=== PATIENT | female | born 1980 | race Caucasian/White ===

== ENCOUNTER → 2017-04-22 | Outpatient (CLI) | payer OTHER ==
--- NOTE | 2017-04-22 11:31 | RADIOLOGY REPORT (SQ) ---
EXAM DESCRIPTION: CERV SP 3 VIEW OR LESS COMPLETED DATE/TIME: 04/22/2017 11:19 am REASON FOR STUDY: PINCHED NERVE ON NECK COMPARISON: 09/24/2014. NUMBER OF VIEWS: Two views. TECHNIQUE: AP and lateral radiographic images acquired of the cervical spine. LIMITATIONS: None. FINDINGS: MINERALIZATION: Normal. ALIGNMENT: Anatomic. VERTEBRAE: Vertebral bodies of normal height. DISCS: No significant disc space narrowing. No large osteophytes. HARDWARE: None in the spine. SOFT TISSUES: No masses or calcifications. Lung apices clear. OTHER: No other significant finding. IMPRESSION: NO SIGNIFICANT FINDING. TECHNICAL DOCUMENTATION: JOB ID: [id number] [employer]- All Rights Reserved
--- NOTE | 2017-04-22 11:31 | RADIOLOGY REPORT (SQ) ---
EXAM DESCRIPTION: L SPINE 2 VIEWS COMPLETED DATE/TIME: 04/22/2017 11:19 am REASON FOR STUDY: SPINAL STENOSIS, DEGENERATIVE DISC CONDITION COMPARISON: 09/24/2014. NUMBER OF VIEWS: Two views. TECHNIQUE: AP and lateral radiographic images acquired of the lumbar spine. LIMITATIONS: None. FINDINGS: MINERALIZATION: Normal. SEGMENTATION: Normal. No transitional anatomy. ALIGNMENT: Normal. VERTEBRAE: Maintained height. No fracture or worrisome bone lesion. DISCS: Preserved height. No significant osteophytes or end plate irregularity. POSTERIOR ELEMENTS: Pedicles and facets are intact. No pars defect or posterior arch defects. HARDWARE: None in the spine. PARASPINAL SOFT TISSUES: Normal. PELVIS: Intact as visualized. No fractures or worrisome bone lesions. SI joints intact. OTHER: No other significant finding. IMPRESSION: NORMAL 2 VIEW LUMBAR SPINE. TECHNICAL DOCUMENTATION: JOB ID: [id number] [employer]- All Rights Reserved
--- NOTE | 2017-04-22 11:32 | RADIOLOGY REPORT (SQ) ---
EXAM DESCRIPTION: SHOULDER RIGHT 2 OR MORE VIEWS COMPLETED DATE/TIME: 04/22/2017 11:19 am REASON FOR STUDY: INFLAMMATION OF TENDONS ON RIGHT SHOULDER, BURSITIS OF RIGHT SHOULDER COMPARISON: None. NUMBER OF VIEWS: Three views. TECHNIQUE: Internal rotation, external rotation, and Y view images acquired of the right shoulder. LIMITATIONS: None. FINDINGS: MINERALIZATION: Normal. BONES: No acute fracture or dislocation. No worrisome bone lesions. No significant osteophytes. GLENOHUMERAL JOINT: No significant findings. ACROMIOCLAVICULAR JOINT: No large osteophytes. SOFT TISSUES: No calcifications. VISUALIZED RIBS, SPINE, AND LUNG: No other significant finding. OTHER: No other significant finding. IMPRESSION: NEGATIVE STUDY OF THE RIGHT SHOULDER. NO EXPLANATION FOR PAIN. TECHNICAL DOCUMENTATION: JOB ID: [id number] [employer]- All Rights Reserved
== END ==
LOC: RAD 10:06
PROVIDERS: ATTEND Family Medicine
DX: G58.9 Mononeuropathy, unspecified (principal); M65.9 Synovitis and tenosynovitis, unspecified; M75.51 Bursitis of right shoulder; M77.9 Enthesopathy, unspecified; M48.00 Spinal stenosis, site unspecified; F41.0 Panic disorder [episodic paroxysmal anxiety]
CPT/HCPCS: 72040; 72100

== ENCOUNTER 2017-06-18 01:54 | Emergency (ER) | payer SELFPAY ==
[2017-06-18] MEDS ORDERED: CLONIDINE 0.2 MG/24 HR PATCH.TDWK TD ONE (02:14)
[2017-06-18] MEDS ORDERED: GABAPENTIN 300 MG CAPSULE PO ONE (02:14)
[2017-06-18] MEDS ORDERED: PROMETHAZINE HCL INJ 25 MG/1 ML VIAL IM ONE (02:15)
--- NOTE | 2017-06-18 02:16 | ER Document Report ---
ED General - General Stated Complaint: POSSIBLE WITHDRAWL Time Seen by Provider: 06/18/17 02:07 Notes: Patient is a 36-year-old female who comes emergency department by EMS for chief complaint of withdrawal symptoms from narcotics. She states that her doctor had a heart attack, she states she sees Dr. Novak spinal surgery in [place], she states she is on a fentanyl patch and on oxycodone. Last fentanyl patch came off yesterday, last oxycodone dose was Friday. She states that she is shaky, she has nausea and vomited, she has watery stools and she cannot relax. Past medical history of degenerative disc disease mainly in her neck and also bursitis in her shoulder reportedly. She denies any other medical history. She states that she fills her scripts in [place] and she just moved here. TRAVEL OUTSIDE OF THE U[place] IN LAST 30 DAYS: No - Related Data Allergies/Adverse Reactions: aspirin [Aspirin] Allergy (Verified 09/17/14 22:19) codeine [Codeine] Allergy (Verified 09/17/14 22:19) Past Medical History - General Information source: Patient - Social History Smoking Status: Never Smoker Frequency of alcohol use: None Lives with: Family Family History: Reviewed & Not Pertinent GI Medical History: Reports: Hx Irritable Bowel Musculoskeltal Medical History: Reports Hx Arthritis Psychiatric Medical History: Reports: Hx Anxiety Past Surgical History: Reports: Hx Tubal Ligation - Immunizations Immunizations up to date: Yes Hx Diphtheria, Pertussis, Tetanus Vaccination: Yes - 2011 Review of Systems - Review of Systems Constitutional: No symptoms reported EENT: No symptoms reported Cardiovascular: No symptoms reported Respiratory: No symptoms reported Gastrointestinal: See HPI Genitourinary: No symptoms reported Female Genitourinary: No symptoms reported Musculoskeletal: See HPI Skin: No symptoms reported Hematologic/Lymphatic: No symptoms reported Neurological/Psychological: No symptoms reported Physical Exam - Vital signs Vitals: Resp 27 H 06/18/17 02:06 Interpretation: Normal - General General appearance: Other - Patient appears mildly anxious, restless, but does not appear to be in distress - HEENT Head: Normocephalic, Atraumatic Eyes: Normal Conjunctiva: Normal Extraocular movements intact: Yes Eyelashes: Normal Pupils: PERRL Mouth/Lips: Normal Mucous membranes: Normal Pharynx: Normal Neck: Normal - Respiratory Respiratory status: No respiratory distress Chest status: Nontender Breath sounds: Normal Chest palpation: Normal - Cardiovascular Rhythm: Regular Heart sounds: Normal auscultation Murmur: No - Abdominal Inspection: Normal Distension: No distension Bowel sounds: Normal Tenderness: Nontender. No: Tender, Guarding Organomegaly: No organomegaly - Back Back: Tender - Nonspecific generalized tenderness over the back in the cervical and lumbar areas. No saddle anesthesia, full range of motion of all extremities , normal strength, normal distal neurovascular exam. - Extremities General upper extremity: Normal inspection, Nontender, Normal color, Normal ROM , Normal temperature General lower extremity: Normal inspection, Nontender, Normal color, Normal ROM , Normal temperature, Normal weight bearing. No: Marge's sign - Neurological Neuro grossly intact: Yes Cognition: Normal Orientation: AAOx4 Sigifredo Coma Scale Eye Opening: Spontaneous Sigifredo Coma Scale Verbal: Oriented Hague Coma Scale Motor: Obeys Commands Sigifredo Coma Scale Total: 15 Speech: Normal Motor strength normal: LUE, RUE, LLE, RLE Sensory: Normal - Psychological Associated symptoms: Normal affect, Normal mood - Skin Skin Temperature: Warm Skin Moisture: Dry Skin Color: Normal Course - Re-evaluation Re-evalutation: Patient provided me with her phone numbers to try to contact her pain management provider spinal surgeon in [place]. I tried all 4 of them. Unable to reach any service or speak with any provider to verify anything for patient. Patient has had x-rays this year that showed no abnormalities in her cervical or lumbar spine. Patient ambulates without any difficulty. No tachycardia or signs of distress. No vomiting. Patient given clonidine, Phenergan, gabapentin. She states she feels minimally improved and still has pain. She is asking for prescription of opiates. I explained that we could manage her withdrawal symptoms but could not provide her with an opiate prescription. Referred her to pain management for management of her chronic pain. Discussed return precautions. Patient does states she will follow-up with pain management and that she will take the medications prescribed. - Vital Signs Vital signs: Temp Pulse Resp BP Pulse Ox 13 100/79 95 06/18/17 03:15 06/18/17 03:01 06/18/17 03:15 Discharge - Discharge Clinical Impression: Opiate withdrawal Chronic back pain Qualifiers: Back pain location: back pain in unspecified location Back pain laterality: bilateral Qualified Code(s): M54.9 - Dorsalgia, unspecified Condition: Stable Disposition: HOME, SELF-CARE Additional Instructions: Wear the clonidine patch. Cover it when you shower. Remove after 1 week. Take phenergan and gabapentin as prescribed. Follow up with the pain clinic for additional management if desired (see referral). Return to the ED for any concerning symptoms - fever, uncontrolled vomiting, etc. Prescriptions: Gabapentin 2 cap PO BID PRN #30 capsule PRN Reason: Promethazine HCl [Phenergan 25 mg Tablet] 1 - 2 tab PO Q6H PRN #20 tablet PRN Reason: Referrals: [facility] [Provider Group] - Follow up as needed
[2017-06-18] MEDS ORDERED: CLONIDINE 0.2 MG/24 HR PATCH.TDWK ONE (02:50)
[2017-06-18 03:25] VITALS: BP 100/79
[2017-06-18] MEDS ORDERED: OXYCODONE-ACETAMINOPHEN 5-325 MG TABLET PO ONE (04:26)
== END 2017-06-18 04:39 | disposition home or self-care (01) ==
LOC: ER 01:54
DX: F11.23 Opioid dependence with withdrawal (principal); M54.9 Dorsalgia, unspecified; R25.1 Tremor, unspecified; R11.2 Nausea with vomiting, unspecified; Z79.899 Other long term (current) drug therapy
CPT/HCPCS: 99284; 96372; J3490; J2550

== ENCOUNTER 2017-06-18 23:49 | Emergency (ER) | payer BC ==
[2017-06-19] MEDS ORDERED: ACETAMINOPHEN 325 MG TABLET PO ONE (01:06)
[2017-06-19] MEDS ORDERED: PROMETHAZINE HCL INJ 25 MG/1 ML VIAL IM ONE (01:07)
[2017-06-19] MEDS ORDERED: GABAPENTIN 400 MG CAPSULE PO ONE (01:07)
--- NOTE | 2017-06-19 01:12 | ER Document Report ---
ED General - General Chief Complaint: Pain All Over Stated Complaint: WITHDRAWAL/ BODY PAIN Time Seen by Provider: 06/19/17 00:59 Notes: Patient is a 36-year-old female who is seen in the ER yesterday. She presents with opiate withdrawal and pain. She was seen yesterday because she was having vomiting and opiate withdrawal. She is on fentanyl and oxycodone. She is on this because of a history of spinal stenosis. She has never had spinal surgeries. She says she is followed by Dr. Novak in [place]. Her doctor apparently had a heart attack and therefore she has been unable to get her prescriptions filled. She says her last pain medicine was on Friday. She presents with continued pain. Yesterday she was seen in a clonidine patch was placed. She was prescribed Gabapentin and Phenergan. She says she never filled the prescriptions for the Gabapentin and Phenergan and therefore has not taken anything. She presents to the ER today because she has pain still. TRAVEL OUTSIDE OF THE [place] IN LAST 30 DAYS: No - Related Data Allergies/Adverse Reactions: aspirin [Aspirin] Allergy (Verified 06/18/17 23:54) codeine [Codeine] Allergy (Verified 06/18/17 23:54) Past Medical History - Social History Smoking Status: Unknown if Ever Smoked Frequency of alcohol use: None Drug Abuse: None Family History: Reviewed & Not Pertinent Renal/ Medical History: Denies: Hx Peritoneal Dialysis GI Medical History: Reports: Hx Irritable Bowel Musculoskeltal Medical History: Reports Hx Arthritis Psychiatric Medical History: Reports: Hx Anxiety Past Surgical History: Reports: Hx Tubal Ligation - Immunizations Immunizations up to date: Yes Hx Diphtheria, Pertussis, Tetanus Vaccination: Yes - 2011 Review of Systems - Review of Systems Notes: My Normal Review Basic REVIEW OF SYSTEMS: CONSTITUTIONAL : Denies fever, chills, or sweats. Denies recent illness. CARDIOVASCULAR: Denies chest pain. RESPIRATORY: Denies cough, cold, or chest congestion. Denies shortness of breath, difficulty breathing, or wheezing. GASTROINTESTINAL: Denies abdominal pain. Some nausea. MUSCULOSKELETAL: Back and neck pain. SKIN: Denies rash or skin lesions. NEUROLOGICAL: Denies altered mental status or loss of consciousness. Denies headache. Denies weakness or paralysis or loss of use of either side. Denies problems with gait or speech. Denies sensory or motor loss. ALL OTHER SYSTEMS REVIEWED AND NEGATIVE. Physical Exam - Vital signs Vitals: Temp Pulse Resp BP Pulse Ox 98.5 F 102 H 20 109/44 L 99 06/18/17 23:54 06/18/17 23:54 06/18/17 23:54 06/18/17 23:54 06/18/17 23:54 - Notes Notes: General Appearance: Well nourished, alert, cooperative, no acute distress,has obvious discomfort. Vitals: reviewed, See vital signs table. Head: no swelling or tenderness to the head Eyes: PERRL, EOMI, Conjuctiva clear Mouth: No decreasd moisture Neck: Supple, neck tenderness that does not seem to be exacerbated by my palpation. Lungs: No wheezing, No rales, No rhonci, No accessory muscle use, good air exchange bilaterally. Heart: Normal rate, Regular rythm, No murmur, no rub Abdomen: Normal BS, soft, No rigidity, No abdominal tenderness, No guarding, no rebound, no abdominal masses, no organomegaly Back: Is difficult to determine whether or not the patient has any pain to palpation of her thoracic lumbar spine as she says that she has pain regardless of me pushing on her back or not. Extremities: strength 5/5 in all extremities, good pulses in all extremities, no swelling or tenderness in the extremities, no edema. Skin: warm, dry, appropriate color, no rash Neuro: speech clear, oriented x 3, normal affect, responds appropriately to questions. Patient is moving all extremities in the bed without difficulty. Distal sensation intact. Cranial nerves are grossly intact. Course - Re-evaluation Re-evalutation: 06/19/17 01:41 Patient informed me that she cannot get her medications refilled because her doctor had a heart attack and is undergoing coronary bypass surgery. Yesterday she told the physician's housing assistant property manager, Nirav Jha, the same thing. I did review his chart. He did try to call phone numbers that she gave him. He was unable to get in touch with anybody. I looked the patient's doctor up on [employer]. Is able to find his office clinic number. I was transferred to a answering service. The answering service come in touch with the covering physician, Dr. Christian. He informed me that Dr. Novak is out on vacation for 1 week however he is healthy and not having a heart attack. He informed me that there are other physicians and PAs covering office to refill pain medicine prescriptions and therefore it is not a reason why the patient should be without her pain meds and is they are available to fill her prescriptions for her. 06/19/17 02:26 I told the patient about this and she still says that she was told that her doctor was having a heart attack and that she cannot have her medications refilled because this. I did inform her that the on-call neurosurgeon said that there is only some uncovering office whether her doctor is out of town or not and that there is always someone available to refill her medications if they are due to be refilled. She then showed me a voicemail from June 09. The voicemail was just her doctor's office calling asking her to call them back. It did not go into any details about as to why she was to call them back. I informed her that we have a policy in the hospital that we do not refill chronic opiate prescriptions. I informed her that she needs to fill the prescription for the Phenergan and the gabapentin as prescribed to her yesterday. I will give her a dose of Skelaxin here she is requesting muscle relaxer. She says she has a prescription for muscle relaxer at home and therefore does not need one. Again informed her that she would not be receiving any opiate prescriptions from us. On reevaluation the patient patient is standing and walk around the room without difficulty. She has no signs of cauda equina syndrome. Her pain seems to be her chronic back pain. Patient will be discharged home and is strongly encouraged to call her doctor's office. Dictation of this chart was performed using voice recognition software; therefore, there may be some unintended grammatical errors. - Vital Signs Vital signs: Temp Pulse Resp BP Pulse Ox 98.5 F 102 H 20 109/44 L 99 06/18/17 23:54 06/18/17 23:54 06/18/17 23:54 06/18/17 23:54 06/18/17 23:54 Discharge - Discharge Clinical Impression: Opiate dependence Qualifiers: Substance use status: with unspecified opioid-induced disorder Qualified Code(s ): F11.29 - Opioid dependence with unspecified opioid-induced disorder Back pain Qualifiers: Back pain location: back pain in unspecified location Chronicity: chronic Back pain laterality: midline Qualified Code(s): M54.9 - Dorsalgia, unspecified; G89.29 - Other chronic pain Condition: Good Disposition: HOME, SELF-CARE Additional Instructions: Please fill the prescriptions that were written for you yesterday by Nirav Jha. Please call your doctor's office to make a follow-up appointment to have your medications refilled. Please return to the ER if you have loss of bowel control, inability to urinate, or intractable vomiting.
[2017-06-19] MEDS ORDERED: METAXALONE 800 MG TABLET PO ONE (02:08)
[2017-06-19 02:57] VITALS: BP 117/63
== END 2017-06-19 02:55 | disposition home or self-care (01) ==
LOC: ER 23:49
DX: F11.23 Opioid dependence with withdrawal (principal); M54.9 Dorsalgia, unspecified; G89.29 Other chronic pain; M79.1 Myalgia
CPT/HCPCS: 99284; J3490; J2550

== ENCOUNTER 2017-06-19 13:12 | Emergency (ER) | payer SELFPAY ==
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
[2017-06-19] MEDS ORDERED: CLONIDINE HCL 0.1 MG TABLET PO ONE (15:00)
[2017-06-19] MEDS ORDERED: NORMAL SALINE 1000 ML 1,000 ML IV ONE (15:28)
[2017-06-19 15:54] LABS: APPEARANCE,URINE CLEAR; BILIRUBIN,URINE NEGATIVE (NEGATIVE); GLUCOSE, URINE NEGATIVE (NEGATIVE); KETONES,URINE NEGATIVE (NEGATIVE); LEUKOCYTE ESTERASE,URINE NEGATIVE (NEGATIVE); NITRITE,URINE NEGATIVE (NEGATIVE); PROTEIN,URINE 30 mg/dL (NEGATIVE); URINE SPECIFIC GRAVITY 1.035; UROBILINOGEN,URINE NEGATIVE mg/dL (<2.0)
[2017-06-19 16:06] LABS: URINE BARBITURATES SCREEN NEGATIVE; URINE METHADONE SCREEN NEGATIVE; URINE OPIATES LOW UNCONFIRMED POSITIVE; URINE PHENCYCLIDINE SCREEN UNCONFIRMED POSITIVE
[2017-06-19 16:10] LABS: ABSOLUTE LYMPHOCYTES (AUTO) 2.9 10^3/uL (0.5-4.7); ABSOLUTE MONOCYTES (AUTO) 0.8 10^3/uL (0.1-1.4); ABSOLUTE NEUT (AUTO) 6.6 10^3/uL (1.7-8.2); BASOPHILS % (AUTO) 0.4 % (0-2); EOSINOPHILS % (AUTO) 0.2 % (0-6); HEMATOCRIT 45.9 % (36.0-47.0); HEMOGLOBIN 15.5 g/dL (12.0-15.5); HGB HCT DIFFERENCE 0.6; LYMPHOCYTES % (AUTO) 27.8 % (13-45); MEAN CORPUSCULAR HEMOGLOBIN 29.2 pg (27.0-33.4); MEAN CORPUSCULAR HGB CONC 33.8 g/dL (32.0-36.0); MEAN CORPUSCULAR VOLUME 87 fl (80-97); MONOCYTES % (AUTO) 7.6 % (3-13); RED CELL DISTRIBUTION WIDTH 13.8 % (11.5-14.0); WHITE BLOOD COUNT 10.3 10^3/uL (4.0-10.5)
[2017-06-19 16:33] LABS: ALANINE AMINOTRANSFERASE 25 U/L (9-52); ALBUMIN 5.2 g/dL (3.5-5.0); ALCOHOL < 10 mg/dL (NONE DETECTED); ALKALINE PHOSPHATASE 117 U/L (38-126); ANION GAP 15 (5-19); ASPARTATE AMINO TRANSFERASE 18 U/L (14-36); BILIRUBIN,DIRECT 0.4 mg/dL (0.0-0.4); BILIRUBIN,TOTAL 0.5 mg/dL (0.2-1.3); BLOOD UREA NITROGEN 6 mg/dL (7-20); CALCIUM 10.6 mg/dL (8.4-10.2); CARBON DIOXIDE 25 mmol/L (22-30); CHLORIDE 104 mmol/L (98-107); CREATININE RESULT 0.69 mg/dL (0.52-1.25); GLUCOSE 111 mg/dL (75-110); TOTAL PROTEIN 8.1 g/dL (6.3-8.2)
[2017-06-19] MEDS ORDERED: NICOTINE 14 MG/24 HR PATCH.TD24 TD ONE (18:45)
[2017-06-19] MEDS ORDERED: DIPHENHYDRAMINE HCL 50 MG CAPSULE PO ONE (18:55)
--- NOTE | 2017-06-19 18:56 | EKG REPORT ---
SEVERITY:- BORDERLINE ECG - SINUS TACHYCARDIA BORDERLINE T ABNORMALITIES, INFERIOR LEADS : Confirmed by: Ugo Hills MD 19-Jun-2017 18:56:03
[2017-06-19] MEDS ORDERED: ONDANSETRON 4 MG TAB.RAPDIS PO ONE (20:46)
[2017-06-19] MEDS ORDERED: VENLAFAXINE HCL 75 MG CAP.SR.24H PO ONE (23:30)
[2017-06-20] MEDS ORDERED: ACETAMINOPHEN 325 MG TABLET PO ONE
[2017-06-20] MEDS ORDERED: PROMETHAZINE HCL 25 MG TABLET PO PRN (00:17)
--- NOTE | 2017-06-20 09:32 | ER Document Report ---
Doctor's Note Notes: 06/20/17 09:31 Patient resting comfortably on stretcher, no complaints this morning, reports feeling much better, patient denies any suicidal or homicidal ideation, patient reports that her plan is to follow-up with [place] pain management to seek out alternative pain management control other than opiate medication, she reports feeling safe to go home at this point in time, is agreeable to following up appropriately, or return if any worsening of symptoms, laboratory findings were discussed with patient at bedside which are unremarkable except for positive urine drug screen findings, patient has been seen and evaluated by mental health team who recommend her discharged Discharge - Discharge Clinical Impression: Polysubstance dependence including opioid type drug, episodic abuse Condition: Stable Disposition: HOME, SELF-CARE Additional Instructions: NARCOTIC / OPIOD ABUSE: Narcotics and opiods are pain-relieving drugs that are often abused. They are addicting. Narcotics cause euphoria, but it often takes increasing amounts to "feel good" and avoid withdrawal symptoms. Overdose of narcotics causes small pupils, coma, and decreased breathing. It's a common cause of . Purity of street narcotics is unpredictable. Injection of narcotics is risky for abscesses, endocarditis (heart infection), pneumonia, and AIDS. Withdrawal from narcotics causes goose bumps, watery mouth, sweating, nasal congestion, muscle aches, abdominal cramps, vomiting, and diarrhea. There 's often restlessness and confusion. Treatment programs are available, but you must make the decision to quit. Medication (such as clonidine) can be prescribed to control the symptoms of withdrawal. FOLLOW-UP CARE: Please follow-up with [facility] in 3 -5 days. If you experience worsening or a significant change in your symptoms, notify the physician immediately or return to the Emergency Department at any time for re-evaluation. Referrals: [facility] [Outside] - Follow up in 3-5 days
--- NOTE | 2017-06-20 09:33 | ER Document Report ---
ED Psych Disorder / Suicide - General Chief Complaint: Medical Complaint Stated Complaint: MEDICATION WITHDRAWL Time Seen by Provider: 06/19/17 14:44 TRAVEL OUTSIDE OF THE [place] IN LAST 30 DAYS: No - HPI Notes: 36 yo female c/o skin crawling from the inside, neck, shoulder, and low back pain, nausea, dizziness since earlier today. "can't seem to focus" Lives alone and called EMS. Seen in ER x 2 9- last night for opiate withdrawal, clonidine patch applied to left upper arm 06-180 which is not helping. Pt told them last night in the ER that she was in opiate withdrawal. 06/19/2017: Patient is found wandering ED asking to see her mother. Clinician assisted patient back to her room where patient stopped in the door way and proceeded to attempt to fall asleep standing and leaning against the door. Patient was easily redirected. Patient is currently presenting as impaired from unknown substance; toxicology reports substantiate this possibility. Patient will be put under IVC at attending physician's request and be evaluated at a later time. 06/20/2017: Patient disclosed that she is feeling much better today than she was yesterday. She disclosed she is no longer having the symptoms of withdrawal. Patient confirms that she uses opiates however, feels that she does not need any resources for substance abuse. Patient states "I have been able to stop drinking and smoking with no difficulties I can do this without help." Patient was urged to consider outpatient services for substance abuse. Patient is alert and orientated to person place time and circumstance. Mood is euthymic with congruent affect. Patient denies suicidal and homicidal ideation. Patient denies auditory and visual hallucinations. Delusions are absent and behavior is congruent with intact reality based presentation (i.e. organized and linear thinking). Conversational speech was within normal rate tone and prosody. Eye contact was well-maintained. Intellectual abilities appear to be within average range. Attention and concentration were good. Insight, judgment, impulse control appear to be poor due to substance abuse. Polysubstance abuse; opiates, phenceyclidine, THC Impression/plan: Patient is recommended for rescind of IVC and is considered psychiatrically clear for discharge. Patient does not meet IVC criteria per [place] GS 122C. Patient denies suicidal and homicidal ideation. Delusions are absent and behavior is congruent with intact reality based presentation (i.e. organized and linear thinking). Patient discloses concern of opiate withdrawal ; clinician notes patient appear to be under the influence when first presenting to [facility] ED. Patient is no longer presenting with impaired cognitive functioning. Patient is urged to consider outpatient services for substance abuse however patient refused resource list. Dr. Plata was consulted on the care and management of this patient; attending physician is in agreement with recommendations and disposition. - Related Data Allergies/Adverse Reactions: aspirin [Aspirin] Allergy (Verified 06/19/17 13:49) codeine [Codeine] Allergy (Verified 06/19/17 13:49) Past Medical History - General Information source: Patient - Social History Smoking Status: Current Every Day Smoker Chew tobacco use (# tins/day): No Frequency of alcohol use: None Drug Abuse: None Occupation: denies drug use/urine drug screen is positive for opiates, marijuana , PCP Family History: Reviewed & Not Pertinent Patient has suicidal ideation: No Patient has homicidal ideation: No Renal/ Medical History: Denies: Hx Peritoneal Dialysis GI Medical History: Reports: Hx Irritable Bowel Musculoskeltal Medical History: Reports Hx Arthritis Psychiatric Medical History: Reports: Hx Anxiety Past Surgical History: Reports: Hx Tubal Ligation - Immunizations Immunizations up to date: Yes Hx Diphtheria, Pertussis, Tetanus Vaccination: Yes - 2011 Physical Exam - Vital signs Vitals: Temp Pulse Resp BP Pulse Ox 98.5 F 132 H 20 140/114 H 97 06/19/17 13:52 06/19/17 13:52 06/19/17 13:52 06/19/17 13:52 06/19/17 13:52 Course - Vital Signs Vital signs: Temp Pulse Resp BP Pulse Ox 98.2 F 79 18 127/82 H 99 06/20/17 06:16 06/20/17 06:16 06/20/17 06:16 06/20/17 06:16 06/20/17 06:16 - Laboratory Result Diagrams: 06/19/17 16:00 06/19/17 16:00 Laboratory results interpreted by me: 06/19/17 06/19/17 06/19/17 15:36 16:00 16:00 RBC 5.30 H BUN 6 L Glucose 111 H Calcium 10.6 H Albumin 5.2 H Urine Protein 30 H Urine Blood SMALL H Salicylates < 1.0 L Acetaminophen < 10 L Discharge - Discharge Clinical Impression: Polysubstance dependence including opioid type drug, episodic abuse Clinical Impression: (Ruled Out): Opiate dependence Condition: Stable Disposition: HOME, SELF-CARE Additional Instructions: NARCOTIC / OPIOD ABUSE: Narcotics and opiods are pain-relieving drugs that are often abused. They are addicting. Narcotics cause euphoria, but it often takes increasing amounts to "feel good" and avoid withdrawal symptoms. Overdose of narcotics causes small pupils, coma, and decreased breathing. It's a common cause of . Purity of street narcotics is unpredictable. Injection of narcotics is risky for abscesses, endocarditis (heart infection), pneumonia, and AIDS. Withdrawal from narcotics causes goose bumps, watery mouth, sweating, nasal congestion, muscle aches, abdominal cramps, vomiting, and diarrhea. There 's often restlessness and confusion. Treatment programs are available, but you must make the decision to quit. Medication (such as clonidine) can be prescribed to control the symptoms of withdrawal. FOLLOW-UP CARE: Please follow-up with [facility] treatment [facility] in 3 -5 days. If you experience worsening or a significant change in your symptoms, notify the physician immediately or return to the Emergency Department at any time for re-evaluation. Referrals: [facility] [Outside] - Follow up in 3-5 days
[2017-06-20 09:44] VITALS: BP 116/69
[2017-06-20] MEDS ORDERED: VENLAFAXINE HCL 75 MG CAP.SR.24H PO SCH (22:00)
== END 2017-06-20 09:44 | disposition home or self-care (01) ==
LOC: ER 13:12
DX: F11.29 Opioid dependence with unspecified opioid-induced disorder (principal); M54.9 Dorsalgia, unspecified; G89.29 Other chronic pain; M79.1 Myalgia; R11.10 Vomiting, unspecified
CPT/HCPCS: 93005; 99283; 36415; 80307 ×4; 84703; 85025; 80053; 81001; 93010; S0119; J7030

== ENCOUNTER 2018-02-23 13:14 | Emergency (ER) | payer SELFPAY ==
[2018-02-23] MEDS ORDERED: ONDANSETRON 4 MG TAB.RAPDIS PO ONE (14:01)
--- NOTE | 2018-02-23 14:02 | ER Document Report ---
ED Medical Screen (RME) - General Chief Complaint: Head Injury Stated Complaint: HEAD INJURY, WEAKNESS, NAUSEA Time Seen by Provider: 02/23/18 13:57 Notes: RAPID MEDICAL EVALUATION DISCLOSURE I have seen this patient as part of a Rapid Medical Evaluation and, if applicable, placed any initially appropriate orders. The patient will be seen and fully evaluated, including a full history and physical exam, by a provider ( in Main ED or Fast Track) when a room becomes available. 37-year-old female here status post fall 3 days ago when she tripped and fell from the second step hitting the back of her head on concrete floor. Since then she has been sleepier than usual, nausea, vomiting, headaches. Today she vomited while at work and so came here for evaluation. EXAM Slightly somnolent Strength 5/5 with intact sensation all extremities Alert and oriented 4 TRAVEL OUTSIDE OF THE U.[place]. IN LAST 30 DAYS: No - Related Data Allergies/Adverse Reactions: aspirin [Aspirin] Allergy (Verified 02/23/18 13:17) codeine [Codeine] Allergy (Verified 02/23/18 13:17) Past Medical History - Social History Frequency of alcohol use: Rare Drug Abuse: None Renal/ Medical History: Denies: Hx Peritoneal Dialysis GI Medical History: Reports: Hx Irritable Bowel Musculoskeltal Medical History: Reports Hx Arthritis Psychiatric Medical History: Reports: Hx Anxiety Past Surgical History: Reports: Hx Tubal Ligation - Immunizations Immunizations up to date: Yes Hx Diphtheria, Pertussis, Tetanus Vaccination: Yes - 2011 Physical Exam - Vital signs Vitals: Temp Pulse Resp BP Pulse Ox 98.6 F 80 16 123/81 97 02/23/18 13:33 02/23/18 13:33 02/23/18 13:33 02/23/18 13:33 02/23/18 13:33 Course - Vital Signs Vital signs: Temp Pulse Resp BP Pulse Ox 98.6 F 80 16 123/81 97 02/23/18 13:33 02/23/18 13:33 02/23/18 13:33 02/23/18 13:33 02/23/18 13:33
--- NOTE | 2018-02-23 15:30 | RADIOLOGY REPORT (SQ) ---
EXAM DESCRIPTION: CT HEAD WITHOUT COMPLETED DATE/TIME: 02/23/2018 3:15 pm REASON FOR STUDY: fall, vomiting, sleepy, FERNANDEZ COMPARISON: None. TECHNIQUE: Axial images acquired through the brain without intravenous contrast. Images reviewed wi th bone, brain and subdural windows. Images stored on PACS. All CT scanners at this facility use dose modulation, iterative reconstruction, and/or weight based d osing when appropriate to reduce radiation dose to as low as reasonably achievable (ALARA). [facility]: Dose Right [facility]: CareDose [facility]: Dose Right [facility]: Teradose 4D [facility]: [place] RADIATION DOSE: mGy. LIMITATIONS: None. FINDINGS: VENTRICLES: Normal size and contour. CEREBRUM: No masses. No hemorrhage. No midline shift. No evidence for acute infarction. Normal gra y/white matter differentiation. No areas of low density in the white matter. CEREBELLUM: No masses. No hemorrhage. No alteration of density. No evidence for acute infarction. EXTRAAXIAL SPACES: No fluid collections. No masses. ORBITS AND GLOBE: No intra- or extraconal masses. Normal contour of globe without masses. CALVARIUM: No fracture. PARANASAL SINUSES: No fluid or mucosal thickening. SOFT TISSUES: No mass or hematoma. OTHER: No other significant finding. IMPRESSION: NORMAL BRAIN CT WITHOUT CONTRAST. EVIDENCE OF ACUTE STROKE: NO. COMMENT: Quality ID # [id number]: Final reports with documentation of one or more dose reduction techniques (e.g., Automated exposure control, adjustment of the mA and/or kV according to patient size, use of iterative reconstruction technique) TECHNICAL DOCUMENTATION: JOB ID: [id number] [employer]- All Rights Reserved Reading location - IP/workstation name: [email or web address]
[2018-02-23] MEDS ORDERED: ACETAMINOPHEN 325 MG TABLET PO ONE (15:55)
[2018-02-23] MEDS ORDERED: PROMETHAZINE HCL 25 MG TABLET PO ONE (15:55)
--- NOTE | 2018-02-23 16:01 | ER Document Report ---
ED Head/Face/Scalp Injury - General Chief Complaint: Head Injury Stated Complaint: HEAD INJURY, WEAKNESS, NAUSEA Time Seen by Provider: 02/23/18 13:57 Mode of Arrival: Ambulatory Information source: Patient TRAVEL OUTSIDE OF THE [place] IN LAST 30 DAYS: No - HPI Patient complains to provider of: Injury Injury to: Head Notes: Patient is here with complaints of head injury. She states that she tripped over a laundry basket in her garage 2 days ago fell back and hit the back of her head. She denies any loss of consciousness. She is on no blood thinning medications. Since that time she has had headache, dizziness, blurred vision, fatigue and has not felt well in general. She is also had some nausea and vomiting. No unilateral numbness, tingling, weakness. No neck or back pain. No chest pain or shortness of breath. She denies any other significant injuries. No chest pain or shortness of breath. No abdominal pain. No other complaints at this time. - Related Data Allergies/Adverse Reactions: aspirin [Aspirin] Allergy (Verified 02/23/18 13:17) codeine [Codeine] Allergy (Verified 02/23/18 13:17) Past Medical History - Social History Smoking Status: Current Every Day Smoker Frequency of alcohol use: Rare Drug Abuse: None Family History: Reviewed & Not Pertinent Patient has suicidal ideation: No Patient has homicidal ideation: No Renal/ Medical History: Denies: Hx Peritoneal Dialysis GI Medical History: Reports: Hx Irritable Bowel Musculoskeltal Medical History: Reports Hx Arthritis Psychiatric Medical History: Reports: Hx Anxiety Past Surgical History: Reports: Hx Tubal Ligation - Immunizations Immunizations up to date: Yes Hx Diphtheria, Pertussis, Tetanus Vaccination: Yes - 2011 Review of Systems - Review of Systems -: Yes All other systems reviewed and negative Physical Exam - Vital signs Vitals: Temp Pulse Resp BP Pulse Ox 98.6 F 80 16 123/81 97 02/23/18 13:33 02/23/18 13:33 02/23/18 13:33 02/23/18 13:33 02/23/18 13:33 - Notes Notes: GENERAL: alert, cooperative, nontoxic, no distress. HEAD: normocephalic, atraumatic EYES: conjunctiva pink without discharge, no external redness or swelling. Pupils are equal, round, reactive to light. Extraocular muscles are intact bilaterally. EARS: no external swelling, no external redness NOSE: atraumatic, no external swelling MOUTH/THROAT: mucous membranes moist and pink, posterior pharynx without erythema, swelling, exudate. No trismus or drooling. NECK: soft, supple, full range of motion, no meningismus. CHEST: no distress, lungs clear and equal throughout. No wheezing, rales, rhonchi. CARDIAC: regular rate and rhythm, no murmur, normal capillary refill, normal pulses. No peripheral edema noted. BACK: full range of motion, no CVA tenderness. EXTREMITIES: full range of motion of all extremities. No redness, no swelling. NEURO: alert and oriented x 3, cranial nerves II through XII are grossly intact. Upper and lower extremities are equal throughout. Normal sensation. No focal deficits, full range of motion of all extremities. normal finger to nose. PYSCH: appropriate mood, affect. Patient is cooperative. SKIN: pink, warm, dry, no rash. Course - Re-evaluation Re-evalutation: 02/23/18 15:57 Patient is nontoxic appearing with stable vitals. She tripped over a laundry basket 2 days ago falling backwards and hitting the back of her head. Since that time she has had concussive type symptoms. She is on no blood thinning medications. She is a nonfocal neurological exam. She had a head CT today showing no acute abnormality. Patient was given Zofran which she states does not typically help her nausea. She was given a dose of Phenergan and some Tylenol prior to being discharged home. I will write her a prescription for Phenergan. She will be referred to neurology. She will be given concussive instructions. She was instructed to rest her brain as much as possible. I will write her out work note for the next few days to allow her to rest. Follow -up sooner for any worsening symptoms, high fever, difficulty breathing or swallowing, or for any further concerns. The patient is noted to have elevated blood pressure during today's emergency department visit. The patient was informed of this finding. The patient was instructed that this may be related to pre-hypertension and requires further evaluation with a primary care provider. The patient has no hypertensive symptoms at this time. The patient's emergency department workup and current diagnosis were explained to the patient and or family. Follow-up instructions were provided. Medications if prescribed were discussed. Instructions for when to return to the emergency department including specific worrisome symptoms were discussed with the patient and/or family. - Vital Signs Vital signs: Temp Pulse Resp BP Pulse Ox 98.6 F 80 16 123/81 97 02/23/18 13:33 02/23/18 13:33 02/23/18 13:33 02/23/18 13:33 02/23/18 13:33 - Diagnostic Test Radiology reviewed: Image reviewed, Reports reviewed - Negative head CT Discharge - Discharge Clinical Impression: Head injury, closed, with concussion Qualifiers: Encounter type: initial encounter Loss of consciousness presence/duration: without LOC Qualified Code(s): S06.0X0A - Concussion without loss of consciousness, initial encounter Condition: Stable Disposition: HOME, SELF-CARE Instructions: Concussion ([facility]), Post-Concussion Syndrome ([facility]) Additional Instructions: Tylenol Motrin as needed for pain. Take medications as prescribed. Drink plenty fluids. Rest her brain as much as possible. Follow-up with neurology at the next available appointment. Follow-up sooner for any worsening symptoms , high fever, persistent vomiting, weakness, or for any further concerns. Your blood pressure was elevated during today's visit. Have this rechecked with your doctor. Prescriptions: Promethazine HCl [Phenergan 25 mg Tablet] 1 - 2 tab PO Q6H PRN #15 tablet PRN Reason: Forms: Return to Work, Elevated Blood Pressure, Smoking Cessation Education Referrals: ABBY NEFF MD [NO LOCAL MD] - Follow up as needed
[2018-02-23 16:10] VITALS: BP 114/53
== END 2018-02-23 16:11 | disposition home or self-care (01) ==
LOC: ER 13:14
DX: S06.0X0A Concussion without loss of consciousness, initial encounter (principal); W01.0XXA Fall on same level from slipping, tripping and stumbling without subsequent striking against object, initial encounter; R51 Headache; R42 Dizziness and giddiness; H53.8 Other visual disturbances; R11.2 Nausea with vomiting, unspecified; R53.83 Other fatigue; R03.0 Elevated blood-pressure reading, without diagnosis of hypertension; F17.200 Nicotine dependence, unspecified, uncomplicated; Z88.5 Allergy status to narcotic agent; Z88.6 Allergy status to analgesic agent
CPT/HCPCS: 99284; 70450; S0119

== ENCOUNTER 2018-03-07 10:35 | Emergency (ER) | payer OTHER ==
[2018-03-07 10:41] VITALS: BP 128/82
[2018-03-07] MEDS ORDERED: RINGERS SOLUTION,LACTATED 1,000 ML IV ONE (11:02)
[2018-03-07] MEDS ORDERED: METOCLOPRAMIDE HCL INJ/PF 10 MG/2 ML SDV IV ONE (11:03)
[2018-03-07] MEDS ORDERED: DIPHENHYDRAMINE HCL 50 MG/ML VIAL IV ONE (11:03)
--- NOTE | 2018-03-07 11:04 | ER Document Report ---
ED Medical Screen (RME) - General Chief Complaint: Headache Stated Complaint: VOMITING,HEADACHE Time Seen by Provider: 03/07/18 11:01 Notes: RAPID MEDICAL EVALUATION DISCLOSURE I have seen this patient as part of a Rapid Medical Evaluation and, if applicable, placed any initially appropriate orders. The patient will be seen and fully evaluated, including a full history and physical exam, by a provider ( in Main ED or Fast Track) when a room becomes available. 37-year-old female here with complaints of headache to the back of the head that started 2 weeks ago after she fell and hit her head. Since then she is had a daily headache that is worse with light and sound. She is tried Tylenol with minimal relief. She reports that she does not normally get headaches. TRAVEL OUTSIDE OF THE [place] IN LAST 30 DAYS: No - Related Data Allergies/Adverse Reactions: aspirin [Aspirin] Allergy (Verified 02/23/18 13:17) codeine [Codeine] Allergy (Verified 02/23/18 13:17) Past Medical History Renal/ Medical History: Denies: Hx Peritoneal Dialysis GI Medical History: Reports: Hx Irritable Bowel Musculoskeltal Medical History: Reports Hx Arthritis Psychiatric Medical History: Reports: Hx Anxiety Past Surgical History: Reports: Hx Tubal Ligation - Immunizations Immunizations up to date: Yes Hx Diphtheria, Pertussis, Tetanus Vaccination: Yes - 2011 Physical Exam - Vital signs Vitals: Temp Pulse Resp BP Pulse Ox 98.9 F 88 16 128/82 H 96 03/07/18 10:40 03/07/18 10:40 03/07/18 10:40 03/07/18 10:40 03/07/18 10:40 Course - Vital Signs Vital signs: Temp Pulse Resp BP Pulse Ox 98.9 F 88 16 128/82 H 96 03/07/18 10:40 03/07/18 10:40 03/07/18 10:40 03/07/18 10:40 03/07/18 10:40
--- NOTE | 2018-03-07 11:31 | ER Document Report ---
ED Headache - General Chief Complaint: Headache Stated Complaint: VOMITING,HEADACHE Time Seen by Provider: 03/07/18 11:01 Mode of Arrival: Ambulatory Information source: Patient Notes: 37-year-old female complaining of a waxing and waning daily headache since she had a head injury on the cement floor in the garage last Friday. She was seen in the emergency department in the CT scan was negative. She has seen a neurologist who put her on half days at work. She has intermittent nausea, dizziness, headache behind both eyes. This morning it was 5/5 at work which is the worst it has been. The pain level is now 2.5/5 after the Reglan and Benadryl that was given IV. She also has had 1 L of normal saline. Patient states that the neurologist wanted to get an MRI of her head and cervical spine. No history of migraines. TRAVEL OUTSIDE OF THE [place] IN LAST 30 DAYS: No - Related Data Allergies/Adverse Reactions: aspirin [Aspirin] Adverse Reaction (Verified 03/07/18 11:06) codeine [Codeine] Adverse Reaction (Verified 03/07/18 11:06) Past Medical History - General Information source: Patient - Social History Smoking Status: Current Every Day Smoker Frequency of alcohol use: Occasional Drug Abuse: None Occupation: Call center Lives with: Spouse/Significant other Family History: Reviewed & Not Pertinent Patient has suicidal ideation: No Patient has homicidal ideation: No - Medical History Medical History: Negative GI Medical History: Reports: Hx Irritable Bowel Musculoskeltal Medical History: Reports Hx Arthritis Psychiatric Medical History: Reports: Hx Anxiety Past Surgical History: Reports: Hx Gynecologic Surgery - Endometrium ablation, Hx Tubal Ligation - Immunizations Immunizations up to date: Yes Hx Diphtheria, Pertussis, Tetanus Vaccination: Yes - 2011 Review of Systems - Review of Systems Constitutional: See HPI EENT: No symptoms reported Cardiovascular: No symptoms reported Respiratory: No symptoms reported Gastrointestinal: No symptoms reported Genitourinary: No symptoms reported Female Genitourinary: No symptoms reported Musculoskeletal: No symptoms reported Skin: No symptoms reported Hematologic/Lymphatic: No symptoms reported Neurological/Psychological: See HPI Physical Exam - Vital signs Vitals: Temp Pulse Resp BP Pulse Ox 98.9 F 88 16 128/82 H 96 03/07/18 10:40 03/07/18 10:40 03/07/18 10:40 03/07/18 10:40 03/07/18 10:40 Interpretation: Normal - General General appearance: Appears well, Alert - HEENT Head: Normocephalic, Atraumatic Eyes: Normal Conjunctiva: Normal Extraocular movements intact: Yes Pupils: PERRL Mucous membranes: Normal Pharynx: Normal Neck: Supple, Other - tender bilateral cervical muscles. No: Lymphadenopathy - Respiratory Respiratory status: No respiratory distress Chest status: Nontender Breath sounds: Normal Chest palpation: Normal - Cardiovascular Rhythm: Regular Heart sounds: Normal auscultation Murmur: No - Abdominal Inspection: Normal Distension: No distension Bowel sounds: Normal Tenderness: Nontender Organomegaly: No organomegaly - Back Back: Normal, Nontender - Extremities General upper extremity: Normal inspection, Nontender, Normal color, Normal ROM , Normal temperature General lower extremity: Normal inspection, Nontender, Normal color, Normal ROM , Normal temperature, Normal weight bearing. No: Marge's sign - Neurological Neuro grossly intact: Yes Cognition: Normal Orientation: AAOx4 Sigifredo Coma Scale Eye Opening: Spontaneous Sigifredo Coma Scale Verbal: Oriented Sigifredo Coma Scale Motor: Obeys Commands Sigifredo Coma Scale Total: 15 Speech: Normal Motor strength normal: LUE, RUE, LLE, RLE Sensory: Normal - Psychological Associated symptoms: Normal affect, Normal mood - Skin Skin Temperature: Warm Skin Moisture: Dry Skin Color: Normal Course - Re-evaluation Re-evalutation: 03/07/18 13:27 I discussed the case with Dr. Carlisle ([facility]) about whether we should get another CT scan today to look for possible slow bleed since it has been 6 days. And he agrees that CT scan today would be indicated. 03/07/18 14:11 CT the head is negative. Aspirin bothers her stomach she is not allergic to it. Toradol 15 mg IV ordered. 03/07/18 14:[address] Yuan for dispo treat with Valium 2 mg twice a day and anti- inflammatory medications - Vital Signs Vital signs: Temp Pulse Resp BP Pulse Ox 98.9 F 88 16 128/82 H 96 03/07/18 10:40 03/07/18 10:40 03/07/18 10:40 03/07/18 10:40 03/07/18 10:40 Discharge - Discharge Clinical Impression: Post-concussion headache Headache Qualifiers: Headache type: unspecified Headache chronicity pattern: unspecified pattern Intractability: not intractable Qualified Code(s): R51 - Headache Cervical strain Qualifiers: Encounter type: subsequent encounter Qualified Code(s): S16.1XXD - Strain of muscle, fascia and tendon at neck level, subsequent encounter Condition: Good Disposition: HOME, SELF-CARE Instructions: Use of Diphenhydramine, Headache ([facility]), Muscle Relaxers ([facility]), Muscle Strain ([facility]), Neck Injury (Cervical Strain) ([facility]), Reglan ([facility]), Toradol Injection ([facility]) Additional Instructions: Warm compress to neck Valium twice a day Motrin Tylenol Follow-up with the neurologist Return to the emergency room if worse Prescriptions: Ibuprofen [Motrin 800 mg Tablet] 800 mg PO Q8HP PRN #30 tablet PRN Reason: Diazepam [Valium 2 mg Tablet] 2 mg PO Q12H #15 tablet Forms: Return to Work Referrals: ABBY NEFF MD [NO [facility] MD] - 03/10/18
--- NOTE | 2018-03-07 13:44 | RADIOLOGY REPORT (SQ) ---
EXAM DESCRIPTION: CT HEAD WITHOUT COMPLETED DATE/TIME: 03/07/2018 1:33 pm REASON FOR STUDY: head injury 6 days ago COMPARISON: None. TECHNIQUE: Axial images acquired through the brain without intravenous contrast. Images reviewed wi th bone, brain and subdural windows. Images stored on PACS. All CT scanners at this facility use dose modulation, iterative reconstruction, and/or weight based d osing when appropriate to reduce radiation dose to as low as reasonably achievable (ALARA). [facility]: Dose Right [facility]: CareDose [facility]: Dose Right [facility]: Teradose 4D [facility]: [employer] RADIATION DOSE: CT Rad equipment meets quality standard of care and radiation dose reduction techniq ues were employed. CTDIvol: 53.2 mGy. DLP: 1044 mGy-cm. mGy. LIMITATIONS: None. FINDINGS: VENTRICLES: Normal size and contour. CEREBRUM: No masses. No hemorrhage. No midline shift. No evidence for acute infarction. Normal gra y/white matter differentiation. No areas of low density in the white matter. CEREBELLUM: No masses. No hemorrhage. No alteration of density. No evidence for acute infarction. EXTRAAXIAL SPACES: No fluid collections. No masses. ORBITS AND GLOBE: No intra- or extraconal masses. Normal contour of globe without masses. CALVARIUM: No fracture. PARANASAL SINUSES: Mucosal thickening of the sphenoid sinus. SOFT TISSUES: No mass or hematoma. OTHER: No other significant finding. IMPRESSION: MINIMAL CHRONIC SINUSITIS. OTHERWISE, NORMAL BRAIN CT WITHOUT CONTRAST. EVIDENCE OF ACUTE STROKE: NO. COMMENT: Quality ID # [id number]: Final reports with documentation of one or more dose reduction techniques (e.g., Automated exposure control, adjustment of the mA and/or kV according to patient size, use of iterative reconstruction technique) TECHNICAL DOCUMENTATION: JOB ID: [id number] [employer]- All Rights Reserved Reading location - IP/workstation name: [email or web address]
[2018-03-07] MEDS ORDERED: KETOROLAC TROMETHAMINE INJ/PF 30 MG/1 ML SDV IV ONE (14:11)
== END 2018-03-07 14:44 | disposition home or self-care (01) ==
LOC: ER 10:35
DX: G44.309 Post-traumatic headache, unspecified, not intractable (principal); S16.1XXD Strain of muscle, fascia and tendon at neck level, subsequent encounter; X58.XXXD Exposure to other specified factors, subsequent encounter; R11.0 Nausea; R42 Dizziness and giddiness; F17.200 Nicotine dependence, unspecified, uncomplicated
CPT/HCPCS: 99284; 96361; 96374; 96375; 70450; J1200; J1885; J2765; J7120

== ENCOUNTER → 2018-03-10 | Outpatient (CLI) | payer OTHER ==
--- NOTE | 2018-03-11 08:51 | RADIOLOGY REPORT (SQ) ---
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 TECHNIQUE: Multiplanar imaging includes noncontrasted T1, T2, FLAIR, diffusion with ADC map and post gadolinium contrast T1 sequences. Images stored on PACS. CONTRAST TYPE AND DOSE: 15 mL Multihance. RENAL FUNCTION: None required. The patient is less than 50 years old. LIMITATIONS: None. FINDINGS: ANATOMY: No anomalies. Normal vascular flow voids. Pituitary fossa normal. CSF SPACES: Normal in size and contour. No hemorrhage. CEREBRUM: Sulci and gyri normal in size and contour. Normal white matter signal on FLAIR imaging. No evidence of hemorrhage, mass, or extraaxial fluid collection. No abnormal enhancement post contrast. POSTERIOR FOSSA: No signal alteration. No hemorrhage. No edema, masses, or mass effect. Internal sarah tory canals, cerebellopontine angles, mastoids normal. No enhancing lesions. No abnormal enhancement post contrast. DIFFUSION IMAGING: Negative for acute or subacute infarction. ORBITS: No masses. Globes normal. PARANASAL SINUSES: No fluid levels. Mucosa normal. OTHER: Susceptibility Imaging-No T2* evidence of abnormal parenchymal iron deposition. Diffusion ten sor imaging is negative. IMPRESSION: NORMAL MRI OF THE BRAIN WITHOUT AND WITH INTRAVENOUS GADOLINIUM CONTRAST. EVIDENCE OF ACUTE STROKE: NO. TECHNICAL DOCUMENTATION: JOB ID: [id number]- All Rights Reserved Reading location - IP/workstation name: [email or web address]
--- NOTE | 2018-03-11 08:54 | RADIOLOGY REPORT (SQ) ---
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 T1 post celeste olinium sequences. CONTRAST TYPE AND DOSE: 15 mL Multihance. RENAL FUNCTION: None required. The patient is less than 50 years old. LIMITATIONS: None. FINDINGS: ALIGNMENT: Normal. VERTEBRAE: Intact. BONE MARROW: Normal. No marrow replacement or reactive changes. DISCS: Normal. No significant abnormal signal or loss of height. HARDWARE: None in the spine. CORD AND BASE OF BRAIN: Normal in size and signal intensity. No abnormal contrast enhancement of the visualized posterior fossa structures, cervical cord, or upper thoracic cord. SOFT TISSUES: No soft tissue masses. C1-C2: No significant spinal stenosis. C2-C3: No significant spinal stenosis or exit foraminal stenosis. C3-C4: No significant spinal stenosis or exit foraminal stenosis. C4-C5: No significant spinal stenosis or exit foraminal stenosis. C5-C6: No significant spinal stenosis or exit foraminal stenosis. C6-C7: No significant spinal stenosis or exit foraminal stenosis. C7-T1: No significant spinal stenosis or exit foraminal stenosis. ENHANCEMENT: No abnormal cervical cord enhancement. No abnormal vertebral body or disc margin enhanc ement. OTHER: No other significant finding. IMPRESSION: NORMAL MRI CERVICAL SPINE WITHOUT AND WITH CONTRAST. COMMENT: None. TECHNICAL DOCUMENTATION: JOB ID: [id number] [employer]- All Rights Reserved Reading location - IP/workstation name: [email or web address] BY [facility]
== END ==
LOC: RAD 19:35
PROVIDERS: ATTEND Nurse Practitioner Family
DX: F07.81 Postconcussional syndrome (principal)
CPT/HCPCS: 70553; 72156